=== PATIENT | female | born 1950 | race Caucasian/White ===

== ENCOUNTER → 2017-03-05 | Day surgery (SDC) | payer OTHER ==
--- NOTE | 2017-03-07 15:21 | PATH ---
Surgical Pathology Report Patient Name: MOJGAN STOKES [facility]. Rec. #: [id number] /Age/Gender: 1950 (Age: 66) / F Account: [id number] Location: [facility]-ENDOSCOPY Taken: 03/05/2017 Received: 03/06/2017 Reported: 03/07/2017 Physicians: Shravan Trujillo M.D. Specimen(s) Received LEFT BREAST 3:00 3 CFN CORE BIOPSY Clinical History Ultrasound findings: Probably benign Final Diagnosis BREAST, LEFT, 3:00, 3 CM FN, CORD BIOPSY: FIBROADIPOSE TISSUE ONLY. NO GLANDULAR BREAST PARENCHYMA IS IDENTIFIED. (SEE COMMENT) Comment: The specimen is comprised entirely of fragments of fibrofatty tissue with no glandular breast parenchyma identified. This lesion may not be tour sales representative of the lesion in question if a more significant lesion is suspected radiologically. Correlation with radiologic findings is recommended. Electronically Signed Miranda Zarco M.D. Gross Description Received in formalin labeled "left breast biopsy 3:00, 3 cmfn," is a 1.6 x 1.4 x 0.3 cm aggregate of multiple wing-yellow, irregular to cylindrical portions of fibroadipose tissue. The formalin is filtered and the specimen is entirely submitted in one cassette. Time to formalin fixation: 2 minutes Total formalin fixation time: Approximately 28 hours. 03/06/2017 [facility]03/06/2017
== END | disposition home or self-care (01) ==
LOC: FRADUS-SUR 12:43
PROVIDERS: ATTEND Surgery
PROC: 0HBU3ZX Excision of Left Breast, Percutaneous Approach, Diagnostic (ICD-10-PCS; principal; 2017-03-05)
DX: N63.20 Unspecified lump in the left breast, unspecified quadrant (principal)
CPT/HCPCS: 19083; 87899; 88305-TC; A4648; G0206-TC